=== PATIENT | female | born 1935 | race Caucasian/White ===

== ENCOUNTER 2021-11-23 08:31 | Outpatient (REF) | payer MEDICARE, SELFPAY ==
[2021-11-23 10:31] LABS: MANUAL DIFF FLAG NO
[2021-11-23 10:35] LABS: MANUAL DIFF FLAG NO
[2021-11-23 10:35] LABS: Basophils Percent Auto 0.5 % (0-2); Eosinophils Absolute Auto 0.3 X10*3/uL (0.0-0.4); Eosinophils Percent Auto 7.4 % (0-4); Hematocrit 36.1 % (37.0-47.0); Hemoglobin 10.5 g/dl (12.0-16.0); Imm Gran Abs Auto 0.01 X10*3/uL (0.00-0.03); Imm Gran Pct Auto 0.2 % (0.0-0.4); Lymphocytes Absolute Auto 1.9 X10*3/uL (1.2-4.9); Lymphocytes Percent Auto 45.9 % (20-40); Mean Corpuscular HGB Conc 29.1 g/dl (31.0-35.0); Mean Corpuscular Hemoglobin 21.9 pg (27.0-33.0); Mean Corpuscular Volume 75.4 fL (80.0-98.0); Mean Platelet Volume 10.8 fL (9.4-12.3); Monocytes Absolute Auto 0.3 X10*3/uL (0.1-1.2); Monocytes Percent Auto 7.9 % (2-11); Neutrophils Absolute Auto 1.5 x10*3/uL (2.0-8.3); Neutrophils Percent Auto 38.1 % (45-73); Platelet Count 281 X10*3/uL (160-400); Red Blood Count 4.79 X10*6/uL (4.20-5.50); Red Cell Distribution Width 18.1 % (11.0-16.0)
[2021-11-23 10:50] LABS: Alanine Aminotransferase 11 U/L (0-31); Alkaline Phosphatase 56 U/L (39-117); Anion Gap 11 (12-20); Aspartate Amino Transferase 17 U/L (5-31); Bilirubin Total 0.2 mg/dL (0.0-1.0); Blood Urea Nitrogen 20 mg/dL (9-16); Carbon Dioxide 31 mmol/L (22-29); Chloride 105 mmol/L (96-108); Cholesterol 185 mg/dL; Estimated Glomerular Filt Rate 55; Glucose Fasting 90 mg/dL (60-99); HDL Cholesterol 51 mg/dL; LDL Cholesterol Calculated 111 mg/dl; Potassium 3.9 mmol/L (3.3-5.1); Sodium 143 mmol/L (135-145); Total Protein 6.8 g/dL (6.5-8.0); Triglycerides 117 mg/dL
[2021-11-23 11:11] LABS: Thyroid Stimulating Hormone 0.45 uIU/mL (0.32-4.0)
== END 2021-11-23 08:32 | disposition home or self-care (01) ==
LOC: HO.10HDL 08:31
PROVIDERS: Visit Provider Internal Medicine
DX: Z00.00 Encounter for general adult medical examination without abnormal findings (principal); Z13.0 Encounter for screening for diseases of the blood and blood-forming organs and certain disorders involving the immune mechanism; E11.9 Type 2 diabetes mellitus without complications; E03.9 Hypothyroidism, unspecified
CPT/HCPCS: 36415; 80053; 80061; 84443; 85025

== ENCOUNTER 2022-06-27 12:42 | Outpatient (REF) | payer MEDICARE, SELFPAY | END 2022-06-27 12:43 | disposition home or self-care (01) | LOC: HO.SH 12:42 | PROVIDERS: Visit Provider Internal Medicine | DX: Z01.118 Encounter for examination of ears and hearing with other abnormal findings (principal); H90.3 Sensorineural hearing loss, bilateral | CPT/HCPCS: 92557; 92567 ==

== ENCOUNTER 2022-08-18 07:30 | Emergency (ER) | payer MEDICARE, SELFPAY ==
--- NOTE | ~2022-08-18 | XR_ITS ---
EXAMINATION: XR CHEST CLINICAL INFORMATION: Generalized weakness COMPARISON: None TECHNIQUE: Frontal view of the chest was obtained. FINDINGS: Several age indeterminate right-sided rib fractures are seen with subjacent opacity that could represent atelectasis or contusion. No dense focal consolidation or mass. No pleural effusion or pneumothorax. Normal pulmonary vascularity. Normal heart size. Degenerative changes of the spine and right greater than left shoulders. XR/XR chest 1V IMPRESSION: Age-indeterminate right-sided rib fractures with subjacent opacity that could represent atelectasis or contusion. Recommend correlation with physical exam. Consider short interval follow-up to confirm resolution of the pulmonary abnormalities.
--- NOTE | ~2022-08-18 | CT_ITS ---
EXAMINATION: CT CHEST WITHOUT CONTRAST CLINICAL INFORMATION: Abnormal chest x-ray COMPARISON: Chest x-ray 08/18/2022 TECHNIQUE: Multidetector volumetric CT imaging of the chest was done. Axial MIP volume rendering provided. Sagittal and coronal reformatted images were obtained. This CT examination was performed using dose optimization techniques as appropriate, variously including the following: *Automated exposure control *Adjustment of mA and/or kV according to patient size (this includes techniques or standardized protocols for targeted exams where dose is matched to indication/reason for exam; i.e. extremities or head) *Use of iterative reconstruction technique DLP: 154 mGy-cm FINDINGS: CHIEF BUSINESS OFFICER: Symmetrically expanded lungs. Right-sided rib fractures. LUNGS: The lungs are clear with no evidence of inflammation or nodules. MEDIASTINUM: The left thyroid is enlarged to 3.1 x 2.7 cm with diffuse heterogeneity. There is heterogeneity in the right lobe the thyroid but it is not enlarged. Several discrete nodules are seen the largest measuring 1.6 cm posteriorly in the left lobe the thyroid. No hilar or mediastinal lymphadenopathy. Normal heart size. Trace pericardial fluid. CORONARY ARTERY CALCIFICATION: There is three-vessel coronary artery calcification. PLEURA: There is no pleural effusion. No pleural mass or thickening. AXILLA: No lymphadenopathy. UPPER ABDOMEN: Small hiatal hernia. No adrenal mass. There are nonobstructing left renal calculi up to 4-5 mm. There is a water density simple cyst in the left kidney for which no imaging follow-up is recommended. OSSEOUS STRUCTURES: Multilevel degenerative changes of the thoracic spine. Multiple right-sided rib fractures are present. These are well-corticated with fracture callus consistent with remote prior fractures. CT/CT chest wo IV con IMPRESSION: The right-sided rib fractures have a chronic appearance. No acute pulmonary disease. Enlarged heterogeneous thyroid with multiple nodules the largest 1.6 cm. Recommend correlation with nonemergent thyroid ultrasound. Fleischner guidelines were followed.
[2022-08-18 07:35] VITALS: BP 122/79; BP 162/72; PULSE 82; PULSE 92; RESP 23; O2SAT 100; BMI 18.5
--- NOTE | 2022-08-18 07:38 | ECG_ITS ---
Test Reason : palpitations Blood Pressure : / mmHG Vent. Rate : 085 BPM Atrial Rate : 085 BPM P-R Int : 140 ms QRS Dur : 076 ms QT Int : 392 ms P-R-T Axes : 061 048 065 degrees QTc Int : 466 ms Normal sinus rhythm Normal ECG No previous ECGs available Referred By: Nathan Cornelius Electronically Signed By:Esvin Smith
--- NOTE | 2022-08-18 07:39 | ED_ITS ---
HPI - General Adult General Chief complaint: General Medical Stated complaint: DIZZINESS/LIGHTHEADEDNESS Time Seen by Provider: 08/18/22 07:32 Source: patient and EMS Mode of arrival: EMS Limitations: no limitations History of Present Illness HPI narrative: 87-year-old female came in by ambulance for evaluation of generalized weakness. Patient feels generalized weakness for the past 2 weeks getting worse over the past couple days patient also feeling nonspecified dizziness for the past 2-3 days, decreased p.o. intake and decreased appetite, Otherwise no CP, no SOB, no abdominal pain, no nausea, no vomiting, no diarrhea, no dysuria, no urinary frequency, no fever, no chills. No sick contact. Patient use opiates for the past 30 years for different pain issues. Related Data Previous Rx's Medication Instructions Recorded verapamil 180 mg tablet,extended 180 mg PO DAILY #90 tabs 03/17/21 release sertraline 100 mg tablet 150 mg PO DAILY #135 tabs 03/27/22 trazodone 50 mg tablet 50 mg PO BEDTIME #90 tabs 03/27/22 quinapril 40 mg tablet 40 mg PO DAILY #90 tabs 05/18/22 simvastatin 40 mg tablet 40 mg PO BEDTIME #90 tabs 05/18/22 lorazepam 1 mg tablet 1 mg PO BID #180 tabs 06/28/22 hydrochlorothiazide 25 mg tablet 25 mg PO DAILY #90 tabs 07/19/22 hydrocodone 7.5 mg-acetaminophen 1 tab PO BID PRN pain 28 days #56 08/04/22 325 mg tablet tabs lorazepam 1 mg tablet 1 mg PO BID PRN anxiety #7 tabs 08/18/22 Allergies Allergy/AdvReac Type Severity Reaction Status Date / Time No Known Allergies Allergy Verified 08/18/22 07:48 Review of Systems Review of Systems: All other systems are reviewed and are negative Constitutional: Reports as per HPI and Reports no additional constitutional complaints Eyes: Reports as per HPI and Reports no additional eye complaints Reports system reviewed and no additional complaints, except as documented Cardiovascular: Reports as per HPI and Reports no additional cardiovascular complaints Respiratory: Reports as per HPI and Reports no additional respiratory complaints Gastrointestinal: Reports as per HPI and Reports no additional gastrointestinal complaints Genitourinary: Reports no additional female genitourinary complaints Musculoskeletal: Reports no additional musculoskeletal complaints Skin/Breast: Reports system reviewed and no additional complaints, except as docu Psychiatric: Reports no additional psychiatric complaints Endocrine: Reports no additional endocrine complaints Hematologic/Lymphatic: Reports no additional hematologic/lymphatic complaints Allergic/Immunologic: Reports no additional allergic/immunologic complaints Reports system reviewed and no additional complaints, except as documented and Reports Abnormal speech present [facility] Past Medical History Medical History Annual physical exam Bilateral impacted cerumen Hyperlipidemia Hypertension Surgical History History of appendectomy History of breast surgery Family History Family History Father No problems noted. Mother No problems noted. Son Mental health disorder Social History Social History Housing: House Alcohol intake: never Patient Tobacco Use Status: Never used Tobacco e-Cigarette/Vaping Use: Never Used Second Hand Smoke Exposure: No Advance Directives: No Advance Directives Information Provided: No service: No Current occupational status: retired Current occupational exposures/hazards: No Cognitive needs: Yes (cane ) Hearing needs: No Vision needs: Yes Physical Exam ED Vital Signs: Vital Signs - 24 hr 08/18/22 07:35 08/18/22 09:12 08/18/22 09:12 Pulse Rate 92 114 H 101 H Respiratory Rate 23 H Blood Pressure 122/79 98/69 110/77 Pulse Oximetry 100 Oxygen Delivery Method Room Air 08/18/22 09:12 08/18/22 11:22 Pulse Rate 88 88 Respiratory Rate Blood Pressure 143/74 H 143/74 H Pulse Oximetry Oxygen Delivery Method BMI result Body Mass Index 18.5 Vital signs have been reviewed as appeared to be correct. Blood pressure normal. Heart rate normal. Respiration rate normal. Temperature normal. Oxygen saturation normal. Appearance: Alert. Oriented X3. No acute distress. Head: Normal external exam. Normocephalic. Atraumatic. No Saul signs noted. No raccoon eyes noted Eyes: PERRLA. EOMI. Conjunctiva and sclera normal. Eyelids normal. ENT: TM's Normal. Pharynx normal. Uvula midline. Moist mucous membranes. No trismus noted. No drooling noted. No muffled voice noted. Neck: Normal inspection. Neck supple. FROM. No adenopathy. Thyroid Normal. No meningeal signs. No neck mass noted. CVS: Normal heart rate and rhythm. Heart sound normal. No murmurs noted. Pulses normal throughout. Respiratory: No respiratory distress. Painless inspiration. Breath sounds sonia l. No wheezes/rales/rhonchi noted. Chest nontender. No accessory muscle usage noted or decreased air movement noted. Abdomen: Soft and nontender. Bowel sounds normal in all 4 quadrants. No distention noted. No organomegaly noted. No visible injury noted. Back: No CVA tenderness. Full range of motion noted. Skin: Skin warm and dry. Normal skin color. Normal skin turgor. No rashes/lesions/lacerations noted. Extremities: No lower extremity edema. Extremities exhibit normal range of motion. Extremities nontender. Neuro: Oriented X 3. Cranial nerve exam: II-XII are grossly intact No motor deficit. No sensory deficit. Reflexes normal. Course Course Course Narrative: 87-year-old female came in for evaluation of generalized weakness with failure to thrive at home patient is opiate dependent medical workup today was unremarkable, patient will be going to [facility] rehab. Medications Administered Discontinued Medications Generic Name Dose Route Start Last Admin Trade Name Freq PRN Reason Stop Dose Admin Sodium Chloride 1,000 mls @ 999 mls/hr 08/18/22 09:15 08/18/22 10:46 Ns IV 08/18/22 10:15 Infused .Q1H1M ONE Infusion Medical Decision Making Differential Diagnosis Differential Diagnoses: The differential diagnosis associated with the presentation includes (Viral infection, UTI, dehydration, electrolyte disturbance, opiate dependence) Lab Data MDM Lab Attestation statement: I reviewed the patient's lab results. 08/18/22 08:00 08/18/22 08:00 Labs: Lab Results 08/18/22 08/18/22 08/18/22 Range/Units 08:00 08:00 08:00 WBC 6.2 (4.8-10.8) X10*3/uL RBC 5.23 (4.20-5.50) X10*6/uL Hgb 13.5 D (12.0-16.0) g/dl Hct 42.7 (37.0-47.0) % MCV 81.6 (80.0-98.0) fL MCH 25.8 L (27.0-33.0) pg MCHC 31.6 (31.0-35.0) g/dl RDW 15.2 (11.0-16.0) % Plt Count 269 (160-400) X10*3/uL MPV 10.4 (9.4-12.3) fL Immature Gran % (Auto) 0.2 (0.0-0.4) % Neut % (Auto) 58.8 (45-73) % Lymph % (Auto) 34.1 (20-40) % [place] % (Auto) 5.3 (2-11) % Eos % (Auto) 1.0 (0-4) % Baso % (Auto) 0.6 (0-2) % Lymph # (Auto) 2.1 (1.2-4.9) X10*3/uL [place] # (Auto) 0.3 (0.1-1.2) X10*3/uL Eos # (Auto) 0.1 (0.0-0.4) X10*3/uL Baso # (Auto) 0.0 (0.0-0.2) X10*3/uL Abs Immat Gran (auto) 0.01 (0.00-0.03) X10*3/uL Absolute Neuts (auto) 3.7 (2.0-8.3) x10*3/uL Absolute Nucleated RBC 0.000 (0.0-0.012) X10*3/uL Nucleated RBC % (auto) 0.0 (0.0-0.2) /100WBC Sodium 143 (135-145) mmol/L Potassium 3.9 (3.3-5.1) mmol/L Chloride 108 (96-108) mmol/L Carbon Dioxide 24 (22-29) mmol/L Anion Gap 15 (12-20) BUN 24 H (9-16) mg/dL Creatinine 0.94 (0.5-1.4) mg/dL Estim Creat Clear Calc 31.5 Estimated GFR 56 Random Glucose 99 (60-115) mg/dL Lactic Acid 3.4 H* (0.5-2.0) mmol/L Lactic Acid F/U @ 2Hr (0.5-2.0) mmol/L Calcium 10.2 (8.4-10.2) mg/dL Total Bilirubin 0.5 (0.0-1.0) mg/dL Direct Bilirubin 0.2 (0.0-0.5) mg/dL AST 20 (5-31) U/L ALT 14 (0-31) U/L Alkaline Phosphatase 50 (39-117) U/L Troponin I High Sens (<3.5-17.0) ng/L B-Natriuretic Peptide (<100) pg/mL Total Protein 6.9 (6.5-8.0) g/dL Albumin 4.2 (3.5-5.0) g/dL Lipase 38 (8-78) U/L Urine Color Urine Appearance Urine pH (5.0-9.0) Ur Specific [place] (1.005-1.025) Urine Protein (Neg-Trace) mg/dL Urine Glucose (UA) (Negative) mg/dL Urine Ketones (Negative) mg/dL Urine Blood (Negative) Urine Nitrite (Negative) Ur Leukocyte Esterase (Negative) Urine RBC (0-2) /HPF Urine WBC (0-5) /HPF Ur Squamous Epith Cells (0-2) /HPF Urine Bacteria (None Seen) Hyaline Casts (0-2) /LPF Influenza Type A (PCR) (Negative) Influenza Type B (PCR) (Negative) RSV RNA Qual (PCR) (Negative) SARS-CoV-2 RNA (RT-PCR) (Negative) 08/18/22 08/18/22 08/18/22 Range/Units 08:00 08:00 08:00 WBC (4.8-10.8) X10*3/uL RBC (4.20-5.50) X10*6/uL Hgb (12.0-16.0) g/dl Hct (37.0-47.0) % MCV (80.0-98.0) fL MCH (27.0-33.0) pg MCHC (31.0-35.0) g/dl RDW (11.0-16.0) % Plt Count (160-400) X10*3/uL MPV (9.4-12.3) fL Immature Gran % (Auto) (0.0-0.4) % Neut % (Auto) (45-73) % Lymph % (Auto) (20-40) % [place] % (Auto) (2-11) % Eos % (Auto) (0-4) % Baso % (Auto) (0-2) % Lymph # (Auto) (1.2-4.9) X10*3/uL [place] # (Auto) (0.1-1.2) X10*3/uL Eos # (Auto) (0.0-0.4) X10*3/uL Baso # (Auto) (0.0-0.2) X10*3/uL Abs Immat Gran (auto) (0.00-0.03) X10*3/uL Absolute Neuts (auto) (2.0-8.3) x10*3/uL Absolute Nucleated RBC (0.0-0.012) X10*3/uL Nucleated RBC % (auto) (0.0-0.2) /100WBC Sodium (135-145) mmol/L Potassium (3.3-5.1) mmol/L Chloride (96-108) mmol/L Carbon Dioxide (22-29) mmol/L Anion Gap (12-20) BUN (9-16) mg/dL Creatinine (0.5-1.4) mg/dL Estim Creat Clear Calc Estimated GFR Random Glucose (60-115) mg/dL Lactic Acid (0.5-2.0) mmol/L Lactic Acid F/U @ 2Hr (0.5-2.0) mmol/L Calcium (8.4-10.2) mg/dL Total Bilirubin (0.0-1.0) mg/dL Direct Bilirubin (0.0-0.5) mg/dL AST (5-31) U/L ALT (0-31) U/L Alkaline Phosphatase (39-117) U/L Troponin I High Sens 5.1 (<3.5-17.0) ng/L B-Natriuretic Peptide 14 (<100) pg/mL Total Protein (6.5-8.0) g/dL Albumin (3.5-5.0) g/dL Lipase (8-78) U/L Urine Color Urine Appearance Urine pH (5.0-9.0) Ur Specific [place] (1.005-1.025) Urine Protein (Neg-Trace) mg/dL Urine Glucose (UA) (Negative) mg/dL Urine Ketones (Negative) mg/dL Urine Blood (Negative) Urine Nitrite (Negative) Ur Leukocyte Esterase (Negative) Urine RBC (0-2) /HPF Urine WBC (0-5) /HPF Ur Squamous Epith Cells (0-2) /HPF Urine Bacteria (None Seen) Hyaline Casts (0-2) /LPF Influenza Type A (PCR) NEGATIVE (Negative) Influenza Type B (PCR) NEGATIVE (Negative) RSV RNA Qual (PCR) NEGATIVE (Negative) SARS-CoV-2 RNA (RT-PCR) NEGATIVE (Negative) 08/18/22 08/18/22 Range/Units 09:17 11:26 WBC (4.8-10.8) X10*3/uL RBC (4.20-5.50) X10*6/uL Hgb (12.0-16.0) g/dl Hct (37.0-47.0) % MCV (80.0-98.0) fL MCH (27.0-33.0) pg MCHC (31.0-35.0) g/dl RDW (11.0-16.0) % Plt Count (160-400) X10*3/uL MPV (9.4-12.3) fL Immature Gran % (Auto) (0.0-0.4) % Neut % (Auto) (45-73) % Lymph % (Auto) (20-40) % [place] % (Auto) (2-11) % Eos % (Auto) (0-4) % Baso % (Auto) (0-2) % Lymph # (Auto) (1.2-4.9) X10*3/uL [place] # (Auto) (0.1-1.2) X10*3/uL Eos # (Auto) (0.0-0.4) X10*3/uL Baso # (Auto) (0.0-0.2) X10*3/uL Abs Immat Gran (auto) (0.00-0.03) X10*3/uL Absolute Neuts (auto) (2.0-8.3) x10*3/uL Absolute Nucleated RBC (0.0-0.012) X10*3/uL Nucleated RBC % (auto) (0.0-0.2) /100WBC Sodium (135-145) mmol/L Potassium (3.3-5.1) mmol/L Chloride (96-108) mmol/L Carbon Dioxide (22-29) mmol/L Anion Gap (12-20) BUN (9-16) mg/dL Creatinine (0.5-1.4) mg/dL Estim Creat Clear Calc Estimated GFR Random Glucose (60-115) mg/dL Lactic Acid (0.5-2.0) mmol/L Lactic Acid F/U @ 2Hr 1.1 (0.5-2.0) mmol/L Calcium (8.4-10.2) mg/dL Total Bilirubin (0.0-1.0) mg/dL Direct Bilirubin (0.0-0.5) mg/dL AST (5-31) U/L ALT (0-31) U/L Alkaline Phosphatase (39-117) U/L Troponin I High Sens (<3.5-17.0) ng/L B-Natriuretic Peptide (<100) pg/mL Total Protein (6.5-8.0) g/dL Albumin (3.5-5.0) g/dL Lipase (8-78) U/L Urine Color Yellow Urine Appearance Clear Urine pH >= 9.0 (5.0-9.0) Ur Specific [place] 1.020 (1.005-1.025) Urine Protein 30 (1+) H (Neg-Trace) mg/dL Urine Glucose (UA) Negative (Negative) mg/dL Urine Ketones Negative (Negative) mg/dL Urine Blood Negative (Negative) Urine Nitrite Negative (Negative) Ur Leukocyte Esterase Trace H (Negative) Urine RBC 0-2 (0-2) /HPF Urine WBC 0-5 (0-5) /HPF Ur Squamous Epith Cells 0-2 (0-2) /HPF Urine Bacteria None Seen (None Seen) Hyaline Casts 0-2 (0-2) /LPF Influenza Type A (PCR) (Negative) Influenza Type B (PCR) (Negative) RSV RNA Qual (PCR) (Negative) SARS-CoV-2 RNA (RT-PCR) (Negative) Independent Interpretation I performed an independent interpretation of an: EKG (Normal sinus rhythm at 85 beats per minute, normal intervals, normal axis deviation, no ST-T changes.), Plain X-Ray (Chest: No acute intrathoracic pathology) and CT Scan (Chest: No acute intrathoracic pathology.) Radiology Impression Discussion of test interpretation with radiology: I have reviewed the radiologist's reading. Discharge Plan Discharge Clinical Impression: Opiate dependence, Chronic pain, Adult failure to thrive Patient Disposition: Xfer [facility] Prescriptions: New lorazepam 1 mg tablet 1 mg PO BID PRN (Reason: anxiety) Qty: 7 0RF No Action verapamil 180 mg tablet extended release 180 mg PO DAILY Qty: 90 8RF sertraline 100 mg tablet 150 mg PO DAILY Qty: 135 8RF trazodone 50 mg tablet 50 mg PO BEDTIME Qty: 90 8RF simvastatin 40 mg tablet 40 mg PO BEDTIME Qty: 90 8RF quinapril 40 mg tablet 40 mg PO DAILY Qty: 90 3RF lorazepam 1 mg tablet 1 mg PO BID Qty: 180 5RF hydrochlorothiazide 25 mg tablet 25 mg PO DAILY Qty: 90 8RF hydrocodone-acetaminophen 7.5-325 mg tablet 1 tab PO BID PRN (Reason: pain) 28 Days Qty: 56 0RF Referrals: [facility] [Outside]
[2022-08-18 08:07] LABS: MANUAL DIFF FLAG NO
[2022-08-18 08:11] LABS: Basophils Percent Auto 0.6 % (0-2); Eosinophils Absolute Auto 0.1 X10*3/uL (0.0-0.4); Hematocrit 42.7 % (37.0-47.0); Hemoglobin 13.5 g/dl (12.0-16.0); Imm Gran Abs Auto 0.01 X10*3/uL (0.00-0.03); Imm Gran Pct Auto 0.2 % (0.0-0.4); Lymphocytes Absolute Auto 2.1 X10*3/uL (1.2-4.9); Lymphocytes Percent Auto 34.1 % (20-40); Mean Corpuscular HGB Conc 31.6 g/dl (31.0-35.0); Mean Corpuscular Hemoglobin 25.8 pg (27.0-33.0); Mean Corpuscular Volume 81.6 fL (80.0-98.0); Mean Platelet Volume 10.4 fL (9.4-12.3); Monocytes Absolute Auto 0.3 X10*3/uL (0.1-1.2); Monocytes Percent Auto 5.3 % (2-11); Neutrophils Absolute Auto 3.7 x10*3/uL (2.0-8.3); Neutrophils Percent Auto 58.8 % (45-73); Platelet Count 269 X10*3/uL (160-400); Red Blood Count 5.23 X10*6/uL (4.20-5.50); Red Cell Distribution Width 15.2 % (11.0-16.0); White Blood Count 6.2 X10*3/uL (4.8-10.8)
[2022-08-18 08:27] LABS: Lactic Acid 3.4 mmol/L (0.5-2.0)
[2022-08-18 08:33] LABS: Alanine Aminotransferase 14 U/L (0-31); Albumin Level 4.2 g/dL (3.5-5.0); Alkaline Phosphatase 50 U/L (39-117); Anion Gap 15 (12-20); Aspartate Amino Transferase 20 U/L (5-31); Bilirubin Direct 0.2 mg/dL (0.0-0.5); Bilirubin Total 0.5 mg/dL (0.0-1.0); Blood Urea Nitrogen 24 mg/dL (9-16); Calcium 10.2 mg/dL (8.4-10.2); Carbon Dioxide 24 mmol/L (22-29); Chloride 108 mmol/L (96-108); Creatinine Clr Calc Pharmacy 31.5; Estimated Glomerular Filt Rate 56; Glucose Random 99 mg/dL (60-115); Lipase 38 U/L (8-78); Potassium 3.9 mmol/L (3.3-5.1); Sodium 143 mmol/L (135-145); Total Protein 6.9 g/dL (6.5-8.0)
[2022-08-18 08:34] LABS: B Type Natriuretic Peptide 14 pg/mL (<100)
[2022-08-18 08:38] LABS: Troponin-I High Sensitivity 5.1 ng/L (<3.5-17.0)
[2022-08-18 08:47] LABS: Influenza A PCR NEGATIVE (Negative); Influenza B PCR NEGATIVE (Negative); Resp Syncy Virus RNA Qual PCR NEGATIVE (Negative); SARS COV2 PCR INHOUSE NEGATIVE (Negative)
[2022-08-18 09:12] VITALS: BP 110/77; BP 143/74; BP 98/69; PULSE 101; PULSE 114; PULSE 88
[2022-08-18] MEDS: 0.9 % Sodium Chloride 1,000 ML 999 ML IV (09:18)
[2022-08-18 09:30] LABS: Appearance Urine Clear; Color Urine Yellow; Glucose Urine UA Negative (Negative); Leukocyte Esterase Urine Trace (Negative); Nitrite Urine Negative (Negative); PH >= 9.0 (5.0-9.0); UMIC TRIGGER UACC YES; Urine Blood Negative (Negative); Urine Ketones Negative (Negative); Urine Protein 30 (1+) mg/dL (Neg-Trace)
[2022-08-18 10:06] LABS: Reflex Lactate? Lactic Acid Added
--- NOTE | 2022-08-18 11:20 | MHC.CM.ED ---
Received case management consult from Dr Cornelius. Patient came to the ER due to dizziness. Work up essentially negative. Physical therapy eval completed. Short term rehab is being recommended. Met with patient and daughter, Ronel. Patient lives with her son, Jd, ambulates with a cane and had no services prior to coming to the hospital. Jd has back and medical issues and is not able to provide physical care for patient. PCP verified. Ronel has a copy of patient's HCP and will obtain a copy for CM. Patient has never been to short term rehab. List of facilities contracted with [facility] provided to patient and Ronel. Facility choices will be provided to CM. Continue to monitor for d/c needs.
[2022-08-18 11:22] VITALS: BP 143/74; PULSE 88
[2022-08-18 11:51] LABS: Bacteria Urine None Seen (None Seen); Hyaline Casts Urine 0-2 /LPF (0-2); RBC Urine 0-2 /HPF (0-2); Squamous Epithelial Cell Urine 0-2 /HPF (0-2); WBC Urine 0-5 /HPF (0-5)
[2022-08-18 11:52] LABS: ~Lactic Acid-LAB USE ONLY 1.1 mmol/L (0.5-2.0)
--- NOTE | 2022-08-18 13:04 | MHC.CM.ED ---
Addendum entered by Radha Russell 08/18/22 14:16: [facility] unable to offer a bed. Referral broadcasted to all facilities contracted with patient's insurance within 20 miles. [facility], [facility], [place] and [facility] are able to offer a bed. Patient and Ronel accept bed at [facility]. Continue to monitor for d/c needs. Original Note: Facility choices: 1) [facility]) [facility] 3) [facility]. Referral made via [facility]. Copy of HCP obtained from Ronel. Continue to monitor for d/c needs.
--- NOTE | 2022-08-18 14:40 | MHC.CM.ED ---
Patient can leave for [facility] via BLS at 330pm. Tien CHAPMANS booked. Med nec with chart. Patient, daughter Angelina Rodney RN and Dr Cornelius aware. Continue to monitor for d/c needs.
[2022-08-18 14:49] VITALS: BP 138/100; PULSE 104; RESP 16; TEMP 36.4; O2SAT 94
== END 2022-08-18 17:10 | disposition skilled nursing facility (03) ==
PROVIDERS: Emergency Provider Emergency Medicine; PCP Internal Medicine
DX: F11.20 Opioid dependence, uncomplicated (principal); R00.2 Palpitations; R42 Dizziness and giddiness; G89.29 Other chronic pain; R62.7 Adult failure to thrive; R06.02 Shortness of breath; R26.2 Difficulty in walking, not elsewhere classified; Z20.822 Contact with and (suspected) exposure to COVID-19; Z20.828 Contact with and (suspected) exposure to other viral communicable diseases; Z79.899 Other long term (current) drug therapy
CPT/HCPCS: 0241U; 36415; 71045; 71250; 80048; 80076; 81001; 83605; 83690; 83880; 84484; 85025; 87040; 93005; 96360; 97162; 99285

== ENCOUNTER 2022-09-01 14:50 | Emergency (ER) | payer MEDICARE, SELFPAY ==
--- NOTE | ~2022-09-01 | XR_ITS ---
EXAMINATION: XR CHEST CLINICAL INFORMATION: Shortness of breath COMPARISON: 08/18/2022 TECHNIQUE: 2 views of the chest were obtained. FINDINGS: Hyperexpanded lungs. No consolidation, edema, or effusion. No pneumothorax. The cardiomediastinal silhouette is within normal limits. Mild degenerative changes in the spine. Chronic right lateral healed rib fractures. XR/XR chest 2V IMPRESSION: Hyperexpanded lungs with no acute pulmonary finding.
[2022-09-01 14:57] VITALS: BP 144/85; PULSE 93; RESP 18; TEMP 36.3; O2SAT 100; BMI 18.6
--- NOTE | 2022-09-01 14:59 | ED_ITS ---
HPI - General Adult General Chief complaint: General Medical <PATRICK Rock - Last Filed: 09/01/22 15:04> Stated complaint: Sent by Dr. Florin Mahmood <PATRICK Rock - Last Filed: 09/01/22 15:04> Time Seen by Provider: 09/01/22 17:39 <PATRICK Rock - Last Filed: 09/01/22 15:04> Source: patient <Jay Payton MD - Last Filed: 09/01/22 23:16> Mode of arrival: ambulatory <Jay Payton MD - Last Filed: 09/01/22 23:16> Limitations: no limitations <Jay Payton MD - Last Filed: 09/01/22 23:16> History of Present Illness HPI narrative: Presented to the Ed c/o Depression and SI.Pt and family states that she has bed at the psych Unit. Denies any fever chills vomiting diarrhea <Jay Payton MD - Last Filed: 09/01/22 23:16> Onset (ago): day(s) (1) <Jay Payton MD - Last Filed: 09/01/22 23:16> Radiation: non-radiation <Jay Payton MD - Last Filed: 09/01/22 23:16> Severity: moderate <Jay Payton MD - Last Filed: 09/01/22 23:16> Quality: burning <Jay Payton MD - Last Filed: 09/01/22 23:16> Pain Consistency: constant <Jay Payton MD - Last Filed: 09/01/22 23:16> Related Data Home medications: Previous Rx's Medication Instructions Recorded verapamil 180 mg tablet,extended 180 mg PO DAILY #90 tabs 03/17/21 release sertraline 100 mg tablet 150 mg PO DAILY #135 tabs 03/27/22 trazodone 50 mg tablet 50 mg PO BEDTIME #90 tabs 03/27/22 quinapril 40 mg tablet 40 mg PO DAILY #90 tabs 05/18/22 simvastatin 40 mg tablet 40 mg PO BEDTIME #90 tabs 05/18/22 hydrochlorothiazide 25 mg tablet 25 mg PO DAILY #90 tabs 12/14/22 hydrocodone 7.5 mg-acetaminophen 1 tab PO BID PRN pain 28 days #56 08/04/22 325 mg tablet tabs lorazepam 1 mg tablet 1 mg PO BID PRN anxiety #7 tabs 08/18/22 <PATRICK Rock - Last Filed: 09/01/22 15:04> Allergies/adverse reactions: Allergies Allergy/AdvReac Type Severity Reaction Status Date / Time No Known Allergies Allergy Verified 09/01/22 14:19 <PATRICK Rock - Last Filed: 09/01/22 15:04> Review of Systems Constitutional: Constitutional: Reports no additional constitutional complaints <Jay Payton MD - Last Filed: 09/01/22 23:16> Cardiovascular: Cardiovascular: Reports no additional cardiovascular complaints <Jay Payton MD - Last Filed: 09/01/22 23:16> Neurologic: Reports system reviewed and no additional complaints, except as documented and Reports Abnormal speech present <Jay Payton MD - Last Filed: 09/01/22 23:16> Psychiatric: Psychiatric: Reports anxiety and Reports depression <Jay Payton MD - Last Filed: 09/01/22 23:16> PMFSH Past Medical History Medical History: Medical History Annual physical exam Bilateral impacted cerumen Hyperlipidemia Hypertension <PATRICK Rock - Last Filed: 09/01/22 15:04> Surgical History: Surgical History History of appendectomy History of breast surgery <PATRICK Rock - Last Filed: 09/01/22 15:04> Family History Family History: Family History Father No problems noted. Mother No problems noted. Son Mental health disorder <PATRICK Rock - Last Filed: 09/01/22 15:04> Social History Social History: Social History Housing: House Alcohol intake: unknown Patient Tobacco Use Status: Never used Tobacco Smoked in Last 30 Days: No e-Cigarette/Vaping Use: Never Used Second Hand Smoke Exposure: No Use of substances other than those prescribed or required for medical reasons: Unknown Advance Directives: No Advance Directives Information Provided: Yes Healthcare Proxy: Yes (dtr Ronel Marti) Guardian: No service: No Current occupational status: retired Current occupational exposures/hazards: No Cognitive needs: Yes (cane ) Hearing needs: No Vision needs: Yes <PATRICK Rock - Last Filed: 09/01/22 15:04> Physical Exam ED Vital Signs: Vital Signs - 24 hr 09/01/22 14:57 09/01/22 18:00 09/01/22 19:41 Temperature 97.3 F 98.4 F Pulse Rate 93 94 Respiratory Rate 18 18 16 Blood Pressure 144/85 H 159/93 H Pulse Oximetry 100 95 Oxygen Delivery Method Room Air Room Air 09/01/22 21:46 09/01/22 22:15 Temperature 97.4 F 98.6 F Pulse Rate 72 105 H Respiratory Rate 16 20 Blood Pressure 146/70 H 136/86 Pulse Oximetry 97 97 Oxygen Delivery Method Room Air Room Air BMI result Body Mass Index 18.6 <PATRICK Rock - Last Filed: 09/01/22 15:04> Vital Signs - 24 hr 09/01/22 14:57 09/01/22 18:00 09/01/22 19:41 Temperature 97.3 F 98.4 F Pulse Rate 93 94 Respiratory Rate 18 18 16 Blood Pressure 144/85 H 159/93 H Pulse Oximetry 100 95 Oxygen Delivery Method Room Air Room Air 09/01/22 21:46 09/01/22 22:15 Temperature 97.4 F 98.6 F Pulse Rate 72 105 H Respiratory Rate 16 20 Blood Pressure 146/70 H 136/86 Pulse Oximetry 97 97 Oxygen Delivery Method Room Air Room Air BMI result Body Mass Index 18.6 <Jay Payton MD - Last Filed: 09/01/22 23:16> Const General: cooperative <Jay Payton MD - Last Filed: 09/01/22 23:16> Nutritional Appearance: well nourished <Jay Payton MD - Last Filed: 09/01/22 23:16> Orientation/consciousness: patient oriented x3 <Jay Payton MD - Last Filed: 09/01/22 23:16> Limitations: no limitations <Jay Payton MD - Last Filed: 09/01/22 23:16> HENMT Head: Yes normal to inspection <Jay Payton MD - Last Filed: 09/01/22 23:16> Ears: hearing grossly normal bilaterally <Jay Payton MD - Last Filed: 09/01/22 23:16> General nose exam: Normal external nose present <Jay Payton MD - Last Filed: 09/01/22 23:16> Face and sinus: Yes normal facial exam <Jay Payton MD - Last Filed: 09/01/22 23:16> Mouth: Normal oral and palatal mucosa present <Jay Payton MD - Last Filed: 09/01/22 23:16> Throat: Yes posterior oropharynx normal <Jay Payton MD - Last Filed: 09/01/22 23:16> Neck Neck: Yes normal visual inspection and Yes full ROM <Jay Payton MD - Last Filed: 09/01/22 23:16> Thyroid: Thyroid normal <Jay Payton MD - Last Filed: 09/01/22 23:16> Carotids: normal carotid upstroke <Jay Payton MD - Last Filed: 09/01/22 23:16> Lymphatic: no lymphadenopathy noted <Jay Payton MD - Last Filed: 09/01/22 23:16> Chest Chest palpation & inspection: normal inspection of the chest <Jay Payton MD - Last Filed: 09/01/22 23:16> Resp Effort & Inspection: normal respiratory effort <Jay Payton MD - Last Filed: 09/01/22 23:16> Auscultation: clear to auscultation bilaterally <Jay Payton MD - Last Filed: 09/01/22 23:16> Cardio Jugular venous distension: no JVD <Jay Payton MD - Last Filed: 09/01/22 23:16> Palpation: normal PMI <Jay Payton MD - Last Filed: 09/01/22 23:16> Rate: regular rate <Jay Payton MD - Last Filed: 09/01/22 23:16> Rhythm: regular rhythm <Jay Payton MD - Last Filed: 09/01/22 23:16> GI Inspection: Yes normal to inspection <Jay Payton MD - Last Filed: 09/01/22 23:16> Palpation (GI): Soft to palpation and not firm <Jay Payton MD - Last Filed: 09/01/22 23:16> Percussion: Yes normal to percussion <Jay Payton MD - Last Filed: 09/01/22 23:16> Auscultation: normal bowel sounds <Jay Payton MD - Last Filed: 09/01/22 23:16> General: Yes no CVA tenderness <Jay Payton MD - Last Filed: 09/01/22 23:16> Back/Spine/Pelvis Back: no CVA tenderness <Jay Payton MD - Last Filed: 09/01/22 23:16> Skin General skin exam: no rashes or lesions noted and elasticity normal <Jay Payton MD - Last Filed: 09/01/22 23:16> Lesions: no lesions <Jay Payton MD - Last Filed: 09/01/22 23:16> Rashes: no rashes <Jay Payton MD - Last Filed: 09/01/22 23:16> Trauma: no lacerations or abrasions <Jay Payton MD - Last Filed: 09/01/22 23:16> Wounds: no wounds <Jay Payton MD - Last Filed: 09/01/22 23:16> Hair: normal <Jay Payton MD - Last Filed: 09/01/22 23:16> Neuro General: patient oriented x3 <Jay Payton MD - Last Filed: 09/01/22 23:16> Cranial nerves: Yes CN's II-XII intact bilaterally <Jay Payton MD - Last Filed: 09/01/22 23:16> Cognition (Neuro): normal cognition <Jay Payton MD - Last Filed: 09/01/22 23:16> Speech: Abnormal speech present <Jay Payton MD - Last Filed: 09/01/22 23:16> Extrem General: Yes normal to inspection, Yes full ROM and Yes capillary refill normal <Jay Payton MD - Last Filed: 09/01/22 23:16> Right upper extremity: normal to inspection <Jay Payton MD - Last Filed: 09/01/22 23:16> Left upper extremity: normal to inspection <Jay Payton MD - Last Filed: 09/01/22 23:16> Course Course Course Narrative: RME performed by Dinorah Iqbal PA-C. Patient is an 87 year old female presenting to the emergency department for the cessation of lorazepam and hydrocodone. Patient's daughter states that the patient's doctor called the department and alerted that the patient would be sent here to be monitored during the withdrawal process. Patient is also having increased shortness of breath? Labs and CXR ordered. <PATRICK Rock - Last Filed: 09/01/22 15:04> Reevaluation(s) Reevaluation #1: waiting for crisis eval I will signed out pt to Dr Gruber <Jay Payton MD - Last Filed: 09/01/22 23:16> Medications Administered Discontinued Medications Generic Name Dose Route Start Last Admin Trade Name Freq PRN Reason Stop Dose Admin Lorazepam 1 mg 09/01/22 21:50 09/01/22 22:14 Lorazepam 1 Mg Tablet PO 09/01/22 21:51 1 mg ONCE ONE Administration <PATRICK Rock - Last Filed: 09/01/22 15:04> Medications Administered Discontinued Medications Generic Name Dose Route Start Last Admin Trade Name Freq PRN Reason Stop Dose Admin Lorazepam 1 mg 09/01/22 21:50 09/01/22 22:14 Lorazepam 1 Mg Tablet PO 09/01/22 21:51 1 mg ONCE ONE Administration <Jay Payton MD - Last Filed: 09/01/22 23:16> Medical Decision Making Medical Decision Making MDM Narrative: presented with depression/Si/benzo abuse will get crisis team <Jay Payton MD - Last Filed: 09/01/22 23:16> Differential Diagnosis Differential Diagnoses: The differential diagnosis associated with the presentation includes <Jay Payton MD - Last Filed: 09/01/22 23:16> anxiety/major depression substance abuse <Jay Payton MD - Last Filed: 09/01/22 23:16> Admission/Observation Consideration of admission/observation: Escalation of care including admission/observation considered <Jay Payton MD - Last Filed: 09/01/22 23:16> Lab Data MDM Lab Attestation statement: I reviewed the patient's lab results. <Jay Payton MD - Last Filed: 09/01/22 23:16> Result Diagrams: 09/01/22 15:35 09/01/22 15:35 <PATRICK Rock - Last Filed: 09/01/22 15:04> Labs: Lab Results 09/01/22 09/01/22 09/01/22 Range/Units 15:35 15:35 15:35 WBC 4.7 L (4.8-10.8) X10*3/uL RBC 5.04 (4.20-5.50) X10*6/uL Hgb 13.2 (12.0-16.0) g/dl Hct 40.5 (37.0-47.0) % MCV 80.4 (80.0-98.0) fL MCH 26.2 L (27.0-33.0) pg MCHC 32.6 (31.0-35.0) g/dl RDW 15.6 (11.0-16.0) % Plt Count 249 (160-400) X10*3/uL MPV 9.8 (9.4-12.3) fL Immature Gran % (Auto) 0.2 (0.0-0.4) % Neut % (Auto) 56.6 (45-73) % Lymph % (Auto) 34.1 (20-40) % [place] % (Auto) 8.5 (2-11) % Eos % (Auto) 0.2 (0-4) % Baso % (Auto) 0.4 (0-2) % Lymph # (Auto) 1.6 (1.2-4.9) X10*3/uL [place] # (Auto) 0.4 (0.1-1.2) X10*3/uL Eos # (Auto) 0.0 (0.0-0.4) X10*3/uL Baso # (Auto) 0.0 (0.0-0.2) X10*3/uL Abs Immat Gran (auto) 0.01 (0.00-0.03) X10*3/uL Absolute Neuts (auto) 2.7 (2.0-8.3) x10*3/uL Absolute Nucleated RBC 0.000 (0.0-0.012) X10*3/uL Nucleated RBC % (auto) 0.0 (0.0-0.2) /100WBC Sodium 139 (135-145) mmol/L Potassium 4.1 (3.3-5.1) mmol/L Chloride 104 (96-108) mmol/L Carbon Dioxide 25 (22-29) mmol/L Anion Gap 14 (12-20) BUN 23 H (9-16) mg/dL Creatinine 0.88 (0.5-1.4) mg/dL Estim Creat Clear Calc 33.8 Estimated GFR > 60 Random Glucose 101 (60-115) mg/dL Calcium 10.0 (8.4-10.2) mg/dL Magnesium 1.8 (1.6-2.6) mg/dL Total Bilirubin 0.5 (0.0-1.0) mg/dL AST 21 (5-31) U/L ALT 17 (0-31) U/L Alkaline Phosphatase 49 (39-117) U/L Troponin I High Sens 8.2 D (<3.5-17.0) ng/L Total Protein 6.4 L (6.5-8.0) g/dL Albumin 4.1 (3.5-5.0) g/dL Influenza Type A (PCR) (Negative) Influenza Type B (PCR) (Negative) RSV RNA Qual (PCR) (Negative) SARS-CoV-2 RNA (RT-PCR) (Negative) 09/01/22 Range/Units 15:36 WBC (4.8-10.8) X10*3/uL RBC (4.20-5.50) X10*6/uL Hgb (12.0-16.0) g/dl Hct (37.0-47.0) % MCV (80.0-98.0) fL MCH (27.0-33.0) pg MCHC (31.0-35.0) g/dl RDW (11.0-16.0) % Plt Count (160-400) X10*3/uL MPV (9.4-12.3) fL Immature Gran % (Auto) (0.0-0.4) % Neut % (Auto) (45-73) % Lymph % (Auto) (20-40) % [place] % (Auto) (2-11) % Eos % (Auto) (0-4) % Baso % (Auto) (0-2) % Lymph # (Auto) (1.2-4.9) X10*3/uL [place] # (Auto) (0.1-1.2) X10*3/uL Eos # (Auto) (0.0-0.4) X10*3/uL Baso # (Auto) (0.0-0.2) X10*3/uL Abs Immat Gran (auto) (0.00-0.03) X10*3/uL Absolute Neuts (auto) (2.0-8.3) x10*3/uL Absolute Nucleated RBC (0.0-0.012) X10*3/uL Nucleated RBC % (auto) (0.0-0.2) /100WBC Sodium (135-145) mmol/L Potassium (3.3-5.1) mmol/L Chloride (96-108) mmol/L Carbon Dioxide (22-29) mmol/L Anion Gap (12-20) BUN (9-16) mg/dL Creatinine (0.5-1.4) mg/dL Estim Creat Clear Calc Estimated GFR Random Glucose (60-115) mg/dL Calcium (8.4-10.2) mg/dL Magnesium (1.6-2.6) mg/dL Total Bilirubin (0.0-1.0) mg/dL AST (5-31) U/L ALT (0-31) U/L Alkaline Phosphatase (39-117) U/L Troponin I High Sens (<3.5-17.0) ng/L Total Protein (6.5-8.0) g/dL Albumin (3.5-5.0) g/dL Influenza Type A (PCR) NEGATIVE (Negative) Influenza Type B (PCR) NEGATIVE (Negative) RSV RNA Qual (PCR) NEGATIVE (Negative) SARS-CoV-2 RNA (RT-PCR) POSITIVE A (Negative) <PATRICK Rock - Last Filed: 09/01/22 15:04> Lab Results 09/01/22 09/01/22 09/01/22 Range/Units 15:35 15:35 15:35 WBC 4.7 L (4.8-10.8) X10*3/uL RBC 5.04 (4.20-5.50) X10*6/uL Hgb 13.2 (12.0-16.0) g/dl Hct 40.5 (37.0-47.0) % MCV 80.4 (80.0-98.0) fL MCH 26.2 L (27.0-33.0) pg MCHC 32.6 (31.0-35.0) g/dl RDW 15.6 (11.0-16.0) % Plt Count 249 (160-400) X10*3/uL MPV 9.8 (9.4-12.3) fL Immature Gran % (Auto) 0.2 (0.0-0.4) % Neut % (Auto) 56.6 (45-73) % Lymph % (Auto) 34.1 (20-40) % [place] % (Auto) 8.5 (2-11) % Eos % (Auto) 0.2 (0-4) % Baso % (Auto) 0.4 (0-2) % Lymph # (Auto) 1.6 (1.2-4.9) X10*3/uL [place] # (Auto) 0.4 (0.1-1.2) X10*3/uL Eos # (Auto) 0.0 (0.0-0.4) X10*3/uL Baso # (Auto) 0.0 (0.0-0.2) X10*3/uL Abs Immat Gran (auto) 0.01 (0.00-0.03) X10*3/uL Absolute Neuts (auto) 2.7 (2.0-8.3) x10*3/uL Absolute Nucleated RBC 0.000 (0.0-0.012) X10*3/uL Nucleated RBC % (auto) 0.0 (0.0-0.2) /100WBC Sodium 139 (135-145) mmol/L Potassium 4.1 (3.3-5.1) mmol/L Chloride 104 (96-108) mmol/L Carbon Dioxide 25 (22-29) mmol/L Anion Gap 14 (12-20) BUN 23 H (9-16) mg/dL Creatinine 0.88 (0.5-1.4) mg/dL Estim Creat Clear Calc 33.8 Estimated GFR > 60 Random Glucose 101 (60-115) mg/dL Calcium 10.0 (8.4-10.2) mg/dL Magnesium 1.8 (1.6-2.6) mg/dL Total Bilirubin 0.5 (0.0-1.0) mg/dL AST 21 (5-31) U/L ALT 17 (0-31) U/L Alkaline Phosphatase 49 (39-117) U/L Troponin I High Sens 8.2 D (<3.5-17.0) ng/L Total Protein 6.4 L (6.5-8.0) g/dL Albumin 4.1 (3.5-5.0) g/dL Influenza Type A (PCR) (Negative) Influenza Type B (PCR) (Negative) RSV RNA Qual (PCR) (Negative) SARS-CoV-2 RNA (RT-PCR) (Negative) 09/01/22 Range/Units 15:36 WBC (4.8-10.8) X10*3/uL RBC (4.20-5.50) X10*6/uL Hgb (12.0-16.0) g/dl Hct (37.0-47.0) % MCV (80.0-98.0) fL MCH (27.0-33.0) pg MCHC (31.0-35.0) g/dl RDW (11.0-16.0) % Plt Count (160-400) X10*3/uL MPV (9.4-12.3) fL Immature Gran % (Auto) (0.0-0.4) % Neut % (Auto) (45-73) % Lymph % (Auto) (20-40) % [place] % (Auto) (2-11) % Eos % (Auto) (0-4) % Baso % (Auto) (0-2) % Lymph # (Auto) (1.2-4.9) X10*3/uL [place] # (Auto) (0.1-1.2) X10*3/uL Eos # (Auto) (0.0-0.4) X10*3/uL Baso # (Auto) (0.0-0.2) X10*3/uL Abs Immat Gran (auto) (0.00-0.03) X10*3/uL Absolute Neuts (auto) (2.0-8.3) x10*3/uL Absolute Nucleated RBC (0.0-0.012) X10*3/uL Nucleated RBC % (auto) (0.0-0.2) /100WBC Sodium (135-145) mmol/L Potassium (3.3-5.1) mmol/L Chloride (96-108) mmol/L Carbon Dioxide (22-29) mmol/L Anion Gap (12-20) BUN (9-16) mg/dL Creatinine (0.5-1.4) mg/dL Estim Creat Clear Calc Estimated GFR Random Glucose (60-115) mg/dL Calcium (8.4-10.2) mg/dL Magnesium (1.6-2.6) mg/dL Total Bilirubin (0.0-1.0) mg/dL AST (5-31) U/L ALT (0-31) U/L Alkaline Phosphatase (39-117) U/L Troponin I High Sens (<3.5-17.0) ng/L Total Protein (6.5-8.0) g/dL Albumin (3.5-5.0) g/dL Influenza Type A (PCR) NEGATIVE (Negative) Influenza Type B (PCR) NEGATIVE (Negative) RSV RNA Qual (PCR) NEGATIVE (Negative) SARS-CoV-2 RNA (RT-PCR) POSITIVE A (Negative) <Jay Payton MD - Last Filed: 09/01/22 23:16> Discharge Plan Discharge Clinical Impression: Depression <PATRICK Rock - Last Filed: 09/01/22 15:04> Patient Disposition: Still a Patient <PATRICK Rock - Last Filed: 09/01/22 15:04> Prescriptions: No Action verapamil 180 mg tablet extended release 180 mg PO DAILY Qty: 90 8RF sertraline 100 mg tablet 150 mg PO DAILY Qty: 135 8RF trazodone 50 mg tablet 50 mg PO BEDTIME Qty: 90 8RF simvastatin 40 mg tablet 40 mg PO BEDTIME Qty: 90 8RF quinapril 40 mg tablet 40 mg PO DAILY Qty: 90 3RF hydrochlorothiazide 25 mg tablet 25 mg PO DAILY Qty: 90 8RF hydrocodone-acetaminophen 7.5-325 mg tablet 1 tab PO BID PRN (Reason: pain) 28 Days Qty: 56 0RF lorazepam 1 mg tablet 1 mg PO BID PRN (Reason: anxiety) Qty: 7 0RF <PATRICK Rock - Last Filed: 09/01/22 15:04>
--- NOTE | 2022-09-01 15:02 | ECG_ITS ---
Test Reason : SOB Blood Pressure : / mmHG Vent. Rate : 094 BPM Atrial Rate : 094 BPM P-R Int : 128 ms QRS Dur : 070 ms QT Int : 360 ms P-R-T Axes : 064 077 072 degrees QTc Int : 450 ms Normal sinus rhythm Normal ECG When compared with ECG of 18-AUG-2022 07:56, No significant change was found Referred By: Dinorah Iqbal Electronically Signed By:LEANNE BHAKTA
[2022-09-01 15:40] LABS: MANUAL DIFF FLAG NO
[2022-09-01 15:42] LABS: Basophils Percent Auto 0.4 % (0-2); Eosinophils Percent Auto 0.2 % (0-4); Hematocrit 40.5 % (37.0-47.0); Hemoglobin 13.2 g/dl (12.0-16.0); Imm Gran Abs Auto 0.01 X10*3/uL (0.00-0.03); Imm Gran Pct Auto 0.2 % (0.0-0.4); Lymphocytes Absolute Auto 1.6 X10*3/uL (1.2-4.9); Lymphocytes Percent Auto 34.1 % (20-40); Mean Corpuscular HGB Conc 32.6 g/dl (31.0-35.0); Mean Corpuscular Hemoglobin 26.2 pg (27.0-33.0); Mean Corpuscular Volume 80.4 fL (80.0-98.0); Mean Platelet Volume 9.8 fL (9.4-12.3); Monocytes Absolute Auto 0.4 X10*3/uL (0.1-1.2); Monocytes Percent Auto 8.5 % (2-11); Neutrophils Absolute Auto 2.7 x10*3/uL (2.0-8.3); Neutrophils Percent Auto 56.6 % (45-73); Platelet Count 249 X10*3/uL (160-400); Red Blood Count 5.04 X10*6/uL (4.20-5.50); Red Cell Distribution Width 15.6 % (11.0-16.0); White Blood Count 4.7 X10*3/uL (4.8-10.8)
[2022-09-01 15:58] LABS: Alanine Aminotransferase 17 U/L (0-31); Albumin Level 4.1 g/dL (3.5-5.0); Alkaline Phosphatase 49 U/L (39-117); Anion Gap 14 (12-20); Aspartate Amino Transferase 21 U/L (5-31); Bilirubin Total 0.5 mg/dL (0.0-1.0); Blood Urea Nitrogen 23 mg/dL (9-16); Carbon Dioxide 25 mmol/L (22-29); Chloride 104 mmol/L (96-108); Creatinine Clr Calc Pharmacy 33.8; Estimated Glomerular Filt Rate > 60; Glucose Random 101 mg/dL (60-115); Magnesium 1.8 mg/dL (1.6-2.6); Potassium 4.1 mmol/L (3.3-5.1); Sodium 139 mmol/L (135-145); Total Protein 6.4 g/dL (6.5-8.0)
[2022-09-01 16:05] LABS: Troponin-I High Sensitivity 8.2 ng/L (<3.5-17.0)
[2022-09-01 16:19] LABS: Influenza A PCR NEGATIVE (Negative); Influenza B PCR NEGATIVE (Negative); Resp Syncy Virus RNA Qual PCR NEGATIVE (Negative); SARS COV2 PCR INHOUSE POSITIVE (Negative)
[2022-09-01 18:00] VITALS: RESP 18
[2022-09-01 19:41] VITALS: BP 159/93; PULSE 94; RESP 16; TEMP 36.9; O2SAT 95
--- NOTE | 2022-09-01 19:42 | MHC.EDTECH ---
this pct assumed care of patient at 1900 ,pt vitals sign taken ,patient was assisted unto bedside commode ,patient coided large amount of urine .
[2022-09-01 21:46] VITALS: BP 146/70; PULSE 72; RESP 16; TEMP 36.3; O2SAT 97
[2022-09-01] MEDS: LORazepam 1 MG TABLET PO (22:14)
[2022-09-01 22:15] VITALS: BP 136/86; PULSE 105; RESP 20; TEMP 37; O2SAT 97
[2022-09-02] MEDS: Melatonin 3 MG TABLET PO (01:36)
--- NOTE | 2022-09-02 03:13 | PC.NURSE ---
This RN reading through chart, noting pt to be +SI. No sitter has been placed with pt since pt arrived. This RN discussing with primary RN Babita and MD Gruber. Per Allyn, no sitter required, just close obs. Pt room directly in front of nursing station @ this time. Per primary RN, [facility] but she was never assigned a bed. This RN contacting nursing supervisor coke handling who was unaware of the situation.
--- NOTE | 2022-09-02 03:20 | PC.NURSE ---
[facility] note reviewed by this RN, pt does no require SI precautions, plan for detox @ this time.
[2022-09-02 03:45] VITALS: BP 133/85; PULSE 89; RESP 18; TEMP 37; O2SAT 97
[2022-09-02] MEDS: guaiFEN/Codeine SF 200/20/10ML 10 ML LIQUID PO (04:05)
[2022-09-02 07:26] VITALS: BP 156/91; PULSE 96; RESP 16; TEMP 36.4; O2SAT 99
--- NOTE | 2022-09-02 07:46 | PC.NURSE ---
THIS RN ASSUMED CARE OF THIS PT AT 0700. PT IN BED RESTING QUIETLY, SHE DENIES PAIN. PT DENIES SI/HI. BREAKFAST GIVEN. INFECTION PRECAUTIONS REMAINS IN PLACE.
[2022-09-02 08:01] VITALS: BP 150/99; PULSE 111; RESP 20; O2SAT 98
--- NOTE | 2022-09-02 10:54 | PC.NURSE ---
PT TRANSFERRED TO HOSPITAL BED, SNACK GIVEN, DENIES PAIN, VSS.
--- NOTE | 2022-09-02 11:37 | MHC.RECOVSUP ---
? Reason for consult:Recovery Support o Current location:ED12? o Identified substance use concern: JUSTEN to Opiates - Support ? Additional information: Consultation with the care team prior to entry. I connected with patient and she is not interested in talking with a Scalping Machine Operator at this time and states that she does not have an issue with abuse of any kind. ?
[2022-09-02] MEDS: LORazepam 1 MG TABLET PO (12:51)
--- NOTE | 2022-09-02 13:02 | PHA.MEDREC ---
Pharmacy Consult ? Medication Reconciliation Pharmacy has completed the medication reconciliation. Spoke to patient's daughter Ronel ([phone]) and confirmed medications.
--- NOTE | 2022-09-02 13:30 | PC.NURSE ---
KAT MADRIGAL (PT'S DAUGHTER) ([phone] - [id number] FOR UPDATE ON PLAN OF CARE. ALEJANDRA MCELROY FROM [facility] AWARE. PT IN BED, NO APPARENT DISTRESS.
[2022-09-02 16:12] VITALS: BP 152/95; PULSE 102; RESP 18; TEMP 36.8; O2SAT 98
--- NOTE | 2022-09-02 16:38 | ED.GENADULT ---
HPI - General Adult General Chief complaint: General Medical Stated complaint: Sent by Dr. Florin Mahmood Time Seen by Provider: 09/01/22 17:39 Source: patient Mode of arrival: ambulatory Limitations: no limitations History of Present Illness Quality: burning Related Data Home Medications Medication Instructions Recorded Confirmed acetaminophen 325 mg tablet 650 mg PO Q6H PRN Pain 09/02/22 09/02/22 (Tylenol) docusate sodium 100 mg capsule 100 mg PO DAILY 09/02/22 09/02/22 Previous Rx's Medication Instructions Recorded verapamil 180 mg tablet,extended 180 mg PO DAILY #90 tabs 03/17/21 release sertraline 100 mg tablet 150 mg PO DAILY #135 tabs 03/27/22 trazodone 50 mg tablet 50 mg PO BEDTIME #90 tabs 03/27/22 quinapril 40 mg tablet 40 mg PO DAILY #90 tabs 05/18/22 simvastatin 40 mg tablet 40 mg PO BEDTIME #90 tabs 05/18/22 hydrochlorothiazide 25 mg tablet 25 mg PO DAILY #90 tabs 07/19/22 hydrocodone 7.5 mg-acetaminophen 1 tab PO BID PRN pain 28 days #56 08/04/22 325 mg tablet tabs lorazepam 1 mg tablet 1 mg PO BID PRN anxiety #7 tabs 08/18/22 Allergies Allergy/AdvReac Type Severity Reaction Status Date / Time No Known Allergies Allergy Verified 09/01/22 14:19 [facility] Past Medical History Medical History Annual physical exam Bilateral impacted cerumen Hyperlipidemia Hypertension Surgical History History of appendectomy History of breast surgery Family History Family History Father No problems noted. Mother No problems noted. Son Mental health disorder Social History Social History Housing: House Alcohol intake: unknown Patient Tobacco Use Status: Never used Tobacco Smoked in Last 30 Days: No e-Cigarette/Vaping Use: Never Used Second Hand Smoke Exposure: No Use of substances other than those prescribed or required for medical reasons: Unknown Advance Directives: No Advance Directives Information Provided: Yes Healthcare Proxy: Yes (dtr Ronel Marti) Guardian: No service: No Current occupational status: retired Current occupational exposures/hazards: No Cognitive needs: Yes (cane ) Hearing needs: No Vision needs: Yes Physical Exam ED Vital Signs: Vital Signs - 24 hr 09/01/22 18:00 09/01/22 19:41 09/01/22 21:46 Temperature 98.4 F 97.4 F Pulse Rate 94 72 Respiratory Rate 18 16 16 Blood Pressure 159/93 H 146/70 H Pulse Oximetry 95 97 Oxygen Delivery Method Room Air Room Air 09/01/22 22:15 09/02/22 03:45 09/02/22 07:26 Temperature 98.6 F 98.6 F 97.6 F Pulse Rate 105 H 89 96 Respiratory Rate 20 18 16 Blood Pressure 136/86 133/85 156/91 H Pulse Oximetry 97 97 99 Oxygen Delivery Method Room Air Room Air Room Air 09/02/22 08:01 09/02/22 16:12 Temperature 98.2 F Pulse Rate 111 H 102 H Respiratory Rate 20 18 Blood Pressure 150/99 H 152/95 H Pulse Oximetry 98 98 Oxygen Delivery Method Room Air Room Air BMI result Body Mass Index 18.6 Course Reevaluation(s) Reevaluation #1: Aug 4 30 pm Stable overnight we are waiting for psych dispo signed out to Dr Gruber Time: 16:39 Medications Administered Discontinued Medications Generic Name Dose Route Start Last Admin Trade Name Freq PRN Reason Stop Dose Admin Guaifenesin/Codeine Phosphate 10 ml 09/02/22 03:43 09/02/22 04:05 Guaifen/Codeine Sf 200/20/10ml 10 Ml Liquid PO 09/02/22 03:44 10 ml ONCE ONE Administration Lorazepam 1 mg 09/01/22 21:50 09/01/22 22:14 Lorazepam 1 Mg Tablet PO 09/01/22 21:51 1 mg ONCE ONE Administration Lorazepam 1 mg 09/02/22 12:43 09/02/22 12:51 Lorazepam 1 Mg Tablet PO 09/02/22 12:44 1 mg ONCE ONE Administration Melatonin 3 mg 09/02/22 01:32 09/02/22 01:36 Melatonin 3 Mg Tablet PO 09/02/22 01:33 3 mg ONCE ONE Administration Medical Decision Making Lab Data 09/01/22 15:35 09/01/22 15:35 Labs: Lab Results 09/01/22 09/01/22 09/01/22 Range/Units 15:35 15:35 15:35 WBC 4.7 L (4.8-10.8) X10*3/uL RBC 5.04 (4.20-5.50) X10*6/uL Hgb 13.2 (12.0-16.0) g/dl Hct 40.5 (37.0-47.0) % MCV 80.4 (80.0-98.0) fL MCH 26.2 L (27.0-33.0) pg MCHC 32.6 (31.0-35.0) g/dl RDW 15.6 (11.0-16.0) % Plt Count 249 (160-400) X10*3/uL MPV 9.8 (9.4-12.3) fL Immature Gran % (Auto) 0.2 (0.0-0.4) % Neut % (Auto) 56.6 (45-73) % Lymph % (Auto) 34.1 (20-40) % [place] % (Auto) 8.5 (2-11) % Eos % (Auto) 0.2 (0-4) % Baso % (Auto) 0.4 (0-2) % Lymph # (Auto) 1.6 (1.2-4.9) X10*3/uL [place] # (Auto) 0.4 (0.1-1.2) X10*3/uL Eos # (Auto) 0.0 (0.0-0.4) X10*3/uL Baso # (Auto) 0.0 (0.0-0.2) X10*3/uL Abs Immat Gran (auto) 0.01 (0.00-0.03) X10*3/uL Absolute Neuts (auto) 2.7 (2.0-8.3) x10*3/uL Absolute Nucleated RBC 0.000 (0.0-0.012) X10*3/uL Nucleated RBC % (auto) 0.0 (0.0-0.2) /100WBC Sodium 139 (135-145) mmol/L Potassium 4.1 (3.3-5.1) mmol/L Chloride 104 (96-108) mmol/L Carbon Dioxide 25 (22-29) mmol/L Anion Gap 14 (12-20) BUN 23 H (9-16) mg/dL Creatinine 0.88 (0.5-1.4) mg/dL Estim Creat Clear Calc 33.8 Estimated GFR > 60 Random Glucose 101 (60-115) mg/dL Calcium 10.0 (8.4-10.2) mg/dL Magnesium 1.8 (1.6-2.6) mg/dL Total Bilirubin 0.5 (0.0-1.0) mg/dL AST 21 (5-31) U/L ALT 17 (0-31) U/L Alkaline Phosphatase 49 (39-117) U/L Troponin I High Sens 8.2 D (<3.5-17.0) ng/L Total Protein 6.4 L (6.5-8.0) g/dL Albumin 4.1 (3.5-5.0) g/dL Influenza Type A (PCR) (Negative) Influenza Type B (PCR) (Negative) RSV RNA Qual (PCR) (Negative) SARS-CoV-2 RNA (RT-PCR) (Negative) 09/01/22 Range/Units 15:36 WBC (4.8-10.8) X10*3/uL RBC (4.20-5.50) X10*6/uL Hgb (12.0-16.0) g/dl Hct (37.0-47.0) % MCV (80.0-98.0) fL MCH (27.0-33.0) pg MCHC (31.0-35.0) g/dl RDW (11.0-16.0) % Plt Count (160-400) X10*3/uL MPV (9.4-12.3) fL Immature Gran % (Auto) (0.0-0.4) % Neut % (Auto) (45-73) % Lymph % (Auto) (20-40) % [place] % (Auto) (2-11) % Eos % (Auto) (0-4) % Baso % (Auto) (0-2) % Lymph # (Auto) (1.2-4.9) X10*3/uL [place] # (Auto) (0.1-1.2) X10*3/uL Eos # (Auto) (0.0-0.4) X10*3/uL Baso # (Auto) (0.0-0.2) X10*3/uL Abs Immat Gran (auto) (0.00-0.03) X10*3/uL Absolute Neuts (auto) (2.0-8.3) x10*3/uL Absolute Nucleated RBC (0.0-0.012) X10*3/uL Nucleated RBC % (auto) (0.0-0.2) /100WBC Sodium (135-145) mmol/L Potassium (3.3-5.1) mmol/L Chloride (96-108) mmol/L Carbon Dioxide (22-29) mmol/L Anion Gap (12-20) BUN (9-16) mg/dL Creatinine (0.5-1.4) mg/dL Estim Creat Clear Calc Estimated GFR Random Glucose (60-115) mg/dL Calcium (8.4-10.2) mg/dL Magnesium (1.6-2.6) mg/dL Total Bilirubin (0.0-1.0) mg/dL AST (5-31) U/L ALT (0-31) U/L Alkaline Phosphatase (39-117) U/L Troponin I High Sens (<3.5-17.0) ng/L Total Protein (6.5-8.0) g/dL Albumin (3.5-5.0) g/dL Influenza Type A (PCR) NEGATIVE (Negative) Influenza Type B (PCR) NEGATIVE (Negative) RSV RNA Qual (PCR) NEGATIVE (Negative) SARS-CoV-2 RNA (RT-PCR) POSITIVE A (Negative) Discharge Plan Discharge Clinical Impression: Depression Patient Disposition: Still a Patient Prescriptions: No Action verapamil 180 mg tablet extended release 180 mg PO DAILY Qty: 90 8RF sertraline 100 mg tablet 150 mg PO DAILY Qty: 135 8RF trazodone 50 mg tablet 50 mg PO BEDTIME Qty: 90 8RF simvastatin 40 mg tablet 40 mg PO BEDTIME Qty: 90 8RF quinapril 40 mg tablet 40 mg PO DAILY Qty: 90 3RF hydrochlorothiazide 25 mg tablet 25 mg PO DAILY Qty: 90 8RF hydrocodone-acetaminophen 7.5-325 mg tablet 1 tab PO BID PRN (Reason: pain) 28 Days Qty: 56 0RF lorazepam 1 mg tablet 1 mg PO BID PRN (Reason: anxiety) Qty: 7 0RF acetaminophen [Tylenol] 325 mg Tablet 650 mg PO Q6H PRN (Reason: Pain) docusate sodium 100 mg Capsule 100 mg PO DAILY
--- NOTE | 2022-09-02 18:12 | PC.NURSE ---
PT'S DAUGHTER CAME TO ED REQUESTING TO SPEAK WITH ALEJANDRA FROM [employer] AND GERARD, MATERIALS SUPERVISOR ABOUT PT'S DISCHARGE. PT'S DAUGHTER REQUESTED ANOTHER PYSCH EVAL HOWEVER DR. ROWLAND IS NOT ABLE TO SEE PT UNTIL TOMORROW MORNING SO HER DAUGHTER SAID SHE WANTS TO TAKE HER HOME. PT'S DAUGHTER BROUGHT HER B/P MEDS FROM HOME AND GAVE THEM TO HER, DR. SORTO AWARE. PT CLEARED FOR DISCHARGE. HER DAUGHTER GOT HER DRESSED AND WILL TRANSPORT HER HOME.
[2022-09-02 18:35] VITALS: BP 143/80; PULSE 113; RESP 18; O2SAT 99
== END 2022-09-02 18:36 | disposition home or self-care (01) ==
PROVIDERS: Physician Assistant Medical; Emergency Provider Emergency Medicine; PCP Internal Medicine
DX: U07.1 COVID-19 (principal); R45.851 Suicidal ideations; F32.A Depression, unspecified; F41.9 Anxiety disorder, unspecified; R06.02 Shortness of breath; F13.10 Sedative, hypnotic or anxiolytic abuse, uncomplicated; I10 Essential (primary) hypertension; E78.5 Hyperlipidemia, unspecified; Z79.02 Long term (current) use of antithrombotics/antiplatelets; Z79.899 Other long term (current) drug therapy
CPT/HCPCS: 0241U; 71046; 80053; 83735; 84484; 85025; 93005; 99284; 99285; S9485

== ENCOUNTER 2022-09-04 18:08 | Outpatient (REF) | payer MEDICARE, SELFPAY ==
[2022-09-04 18:18] LABS: Appearance Urine Clear; Color Urine Dark Yellow; Glucose Urine UA Negative (Negative); Leukocyte Esterase Urine Negative (Negative); Nitrite Urine Negative (Negative); PH 5.5 (5.0-9.0); Specific Gravity - Urine >= 1.030 (1.005-1.025); Urine Blood Negative (Negative); Urine Ketones Negative (Negative); Urine Protein Trace mg/dL (Neg-Trace)
== END 2022-09-04 18:09 | disposition home or self-care (01) ==
LOC: HO.LNP 18:08
PROVIDERS: Visit Provider Internal Medicine
DX: N39.0 Urinary tract infection, site not specified (principal)
CPT/HCPCS: 81003

== ENCOUNTER 2022-11-21 08:24 | Outpatient (REF) | payer MEDICARE, SELFPAY ==
[2022-11-21 10:22] LABS: MANUAL DIFF FLAG NO
[2022-11-21 10:32] LABS: Basophils Percent Auto 0.6 % (0-2); Eosinophils Absolute Auto 0.1 X10*3/uL (0.0-0.4); Eosinophils Percent Auto 1.1 % (0-4); Hematocrit 44.4 % (37.0-47.0); Hemoglobin 14.1 g/dl (12.0-16.0); Imm Gran Abs Auto 0.01 X10*3/uL (0.00-0.03); Imm Gran Pct Auto 0.2 % (0.0-0.4); Lymphocytes Absolute Auto 1.7 X10*3/uL (1.2-4.9); Lymphocytes Percent Auto 30.5 % (20-40); Mean Corpuscular HGB Conc 31.8 g/dl (31.0-35.0); Mean Corpuscular Hemoglobin 29.3 pg (27.0-33.0); Mean Corpuscular Volume 92.1 fL (80.0-98.0); Mean Platelet Volume 11.6 fL (9.4-12.3); Monocytes Absolute Auto 0.4 X10*3/uL (0.1-1.2); Monocytes Percent Auto 7.2 % (2-11); Neutrophils Absolute Auto 3.3 x10*3/uL (2.0-8.3); Neutrophils Percent Auto 60.4 % (45-73); Platelet Count 193 X10*3/uL (160-400); Red Blood Count 4.82 X10*6/uL (4.20-5.50); White Blood Count 5.4 X10*3/uL (4.8-10.8)
[2022-11-21 10:47] LABS: Alanine Aminotransferase 17 U/L (0-31); Alkaline Phosphatase 62 U/L (39-117); Anion Gap 11 (12-20); Aspartate Amino Transferase 19 U/L (5-31); Bilirubin Total 0.4 mg/dL (0.0-1.0); Blood Urea Nitrogen 14 mg/dL (9-16); Calcium 9.9 mg/dL (8.4-10.2); Carbon Dioxide 30 mmol/L (22-29); Chloride 106 mmol/L (96-108); Cholesterol 204 mg/dL; Estimated Glomerular Filt Rate > 60; Glucose Fasting 83 mg/dL (60-99); HDL Cholesterol 62 mg/dL; LDL Cholesterol Calculated 114 mg/dl; Sodium 143 mmol/L (135-145); Total Protein 6.4 g/dL (6.5-8.0); Triglycerides 143 mg/dL
[2022-11-21 11:04] LABS: Thyroid Stimulating Hormone 1.49 uIU/mL (0.32-4.0)
== END 2022-11-21 08:25 | disposition home or self-care (01) ==
LOC: HO.10HDL 08:24
PROVIDERS: Visit Provider Internal Medicine
DX: E03.9 Hypothyroidism, unspecified (principal); N28.9 Disorder of kidney and ureter, unspecified; D64.9 Anemia, unspecified; E78.5 Hyperlipidemia, unspecified
CPT/HCPCS: 36415; 80053; 80061; 84443; 85025

== ENCOUNTER 2023-08-10 11:21 | Outpatient (AMB) | payer MEDICARE, SELFPAY ==
--- NOTE | 2023-08-10 11:22 | MHC.PC.OV ---
Vital Signs 08/10/23 11:24 Height 5 ft 3 in Weight 110 lb BMI 19.5 BP 120/60 Blood Pressure Location Lt brachial Position Sitting Pulse 70 Pulse Source Pulse Oximeter Pulse Oximetry (%) 98 Oxygen Delivery Method Room Air Intake Visit Reasons: Dimentia Intake Note: Patient is here to follow up on Dementia. Beam Dyer Operator Required: No Environmental Engineering Assistant: Present Accompanied by: Daughter Allergies No Known Allergies Allergy (Verified 08/10/23 11:24) Medication List - Last Reconciled 08/10/23 by Florin Mahmood MD acetaminophen (Tylenol) 650 mg PO Q6H PRN lisinopril 20 mg PO DAILY quinapril 40 mg PO DAILY simvastatin 20 mg PO BEDTIME verapamil ER 180 mg PO DAILY Tobacco use date assessed: 08/10/23 Fall risk assessment: No Falls in past year Last assessed Fall Risk: 08/10/23 Dental Screening Dental Screen Date: 08/10/23 Did you have a dental visit in the last 12 months?: No Did you have a dental problem in the last 6 months where you did not have access to dental care?: No Was dental information given to patient?: No HPI Dimentia HPI Details HTN and dementia on rx; [facility] Medical History (Updated 08/10/23 @ 12:05 by Florin Mahmood MD) Bilateral impacted cerumen Hyperlipidemia Annual physical exam Hypertension Surgical History (Updated 08/10/23 @ 11:30 by MARICRUZ Angulo) History of skin surgery History of breast surgery History of appendectomy Family History Father No problems noted. Mother No problems noted. Son Mental health disorder Social History Housing: House Alcohol intake: unknown Patient Tobacco Use Status: Never used Tobacco e-Cigarette/Vaping Use: Never Used Second Hand Smoke Exposure: No service: No Current occupational status: retired Current occupational exposures/hazards: No Cognitive needs: Yes (cane ) Hearing needs: No Vision needs: Yes Questionnaire PHQ-9 Over the last 2 weeks, how often have you been bothered by any of the following problems? 1. Little interest or pleasure in doing things: not at all 2. Feeling down, depressed, or hopeless: not at all 3. Trouble falling or staying asleep, or sleeping too much: not at all 4. Feeling tired or having little energy: not at all 5. Poor appetite or overeating: not at all 6. Feeling bad about yourself - or that you are a failure or have let yourself or your family down: not at all 7. Trouble concentrating on things, such as reading the newspaper or watching television: not at all 8. Moving or speaking so slowly that other people could have noticed. Or the opposite - being so fidgety or restless that you have been moving around a lot more than usual: not at all 9. Thoughts that you would be better off or of hurting yourself in some way: not at all Total score: 0 Depression Screening Interpretation: Negative Depression Screening Done: Yes 97093 - PHQ-9 Billing: Yes Source: Developed by Drs. Nixon Deleon, Saranya Pearson, Toni Damian and colleagues, with an educational sanya from [employer]. Thrive Questionnaire Date Thrive assessed: 08/10/23 I am a: Patient What is your living situation today?: I have a steady place to live Within the past 12 months, did the food you bought not last and you didn't have the money to get more?: Never true Within the past 12 months, did you worry whether your food would run out before you got money to buy more?: Never true Do you have trouble paying for medicines?: No Do you have trouble getting transportation to medical appointments?: No Do you have trouble paying your heating and electricity bill?: No Do you have trouble taking care of your child, family member or friend?: No Do you have trouble with day-to-day activities such as bathing, preparing meals, shopping, managing finances, etc.?: No Are you currently unemployed and looking for a job?: No Are you interested in more education?: No Currently or been in a relationship where the following occur: no concerns reported AUDIT C Alcohol Use Questionnaire (AUDIT-C) 1. How often do you have a drink containing alcohol?: Never Total Score: 0 HOSESIN-7 AMB Questionnaire HOSSEIN-7 Date HOSSEIN - 7 assessed: 08/10/23 Feeling nervous, anxious, or on edge: 0 = Not at all Not being able to stop or control worryin = Not at all Worrying too much about different things: 0 = Not at all Trouble relaxin = Not at all Being so restless that it is hard to sit still: 0 = Not at all Becoming easily annoyed or irritable: 0 = Not at all Feeling afraid as if something awful might happen: 0 = Not at all Total HOSSEIN-7 score (0-4 normal; 5-9 mild; 10-14 moderate; 15-21 severe): 0 Source: Developed by Drs. Nixon Deleon, Saranya Pearson, Toni Damian and colleagues, with an educational sanya from [employer]. HOSSEIN-7 Assessment Billing HOSSEIN-7 Assessment Tool: HOSSEIN-7 Assessment 11156 Review of Systems Const Denies chills, Denies headache(s) and Denies weight loss ENT Denies headache(s) Card Denies chest pain, Denies syncope, Denies irregular heart rhythm and Denies dyspnea Resp Denies chest congestion, Denies cough and Denies dyspnea GI Denies abdominal pain, Denies change in stool character, Denies nausea and Denies vomiting Musc Denies deformity and Denies joint swelling Neuro Denies syncope and Denies headache(s) Physical exam (Primary Care) Vital Signs: Last Vital Signs Pulse 70 08/10/23 11:24 BP 120/60 08/10/23 11:24 Pulse Ox 98 08/10/23 11:24 Oxygen Delivery Method Room Air 08/10/23 11:24 BMI result Body Mass Index 19.5 Tobacco/Smoking Status: Tobacco use Status Tobacco use date assessed 08/10/23 08/10/23 11:31 Patient Tobacco Use Status Never used Tobacco 08/10/23 11:31 e-Cigarette/Vaping Use Never Used 08/10/23 11:31 PHQ-9: PHQ-9 Score PHQ-9: Total score 0 08/10/23 11:31 Depression Screening Interpretation: Negative Thrive Assessment: Date of Thrive Assessment Date Thrive assessed 08/10/23 08/10/23 11:31 Currently or been in a relationship where the following occur: no concerns reported Const General: cooperative, comfortable, no acute distress and alert Neck Neck: Yes no lymphadenopathy Thyroid: Thyroid normal Resp Effort & Inspection: normal respiratory effort Auscultation: clear to auscultation bilaterally Percussion: percussion normal Cardio Jugular venous distension: no JVD Palpation: normal PMI Rate: regular rate Rhythm: regular rhythm Heart sounds: S1 normal heart sound present and S2 normal heart sound present GI Inspection: Yes normal to inspection Palpation (GI): No hepatosplenomegaly present Skin General skin exam: no rashes or lesions noted Extrem General: Yes no clubbing, cyanosis or edema Assessment and Plan Assessment & Plan (1) Hypertension: Code(s): I10 - Essential (primary) hypertension Plan: stable; same rx (2) Dementia: Code(s): F03.90 - Unspecified dementia, unspecified severity, without behavioral disturbance, psychotic disturbance, mood disturbance, and anxiety Plan: stable Orders: Orders Thyroid Stimulating Hormone Today E03.9 - Hypothyroidism, unspecified Comprehensive [place]. Panel Fast Today N28.9 - Disorder of kidney and ureter, unspecified Ferritin Today D64.9 - Anemia, unspecified Lipid Panel Today E78.5 - Hyperlipidemia, unspecified Medications: Changed From simvastatin 40 mg PO BEDTIME 90 tabs 8RF To simvastatin 20 mg PO BEDTIME Refilled verapamil ER 180 mg PO DAILY 90 tabs 8RF Coding Level of Care Code Est Pt Level 3 (83070) Diagnoses Hypertension I10 Dementia F03.90 Additional Codes HOSSEIN-7 Assessment Billing - HOSSEIN-7 Assessment Tool: HOSSEIN-7 Assessment [id number] ([id number])
[2023-08-10 11:24] VITALS: BP 120/60; PULSE 70; O2SAT 98; BMI 19.5
== END 2023-08-10 12:43 | disposition home or self-care (01) ==
PROVIDERS: PCP Internal Medicine; Visit Provider Internal Medicine
DX: I10 Essential (primary) hypertension (principal); F03.90 Unspecified dementia, unspecified severity, without behavioral disturbance, psychotic disturbance, mood disturbance, and anxiety
CPT/HCPCS: 99213

== ENCOUNTER 2023-08-10 11:53 | Outpatient (REF) | payer MEDICARE, SELFPAY | END 2023-08-10 11:54 | disposition home or self-care (01) | LOC: HO.LAB 11:53 | PROVIDERS: PCP Internal Medicine; Visit Provider Internal Medicine | DX: E03.9 Hypothyroidism, unspecified (principal); N28.9 Disorder of kidney and ureter, unspecified; E78.5 Hyperlipidemia, unspecified; D64.9 Anemia, unspecified | CPT/HCPCS: 36415; 80053; 80061; 82728; 84443 ==

== ENCOUNTER 2025-01-08 10:10 | Outpatient (AMB) | payer MEDICARE, SELFPAY ==
--- NOTE | 2025-01-08 10:15 | MHC.PC.OV ---
Vital Signs 01/08/25 10:18 Height 5 ft 3 in Weight 107 lb 2.314 oz BMI 19.0 BP 154/96 H Blood Pressure Location Lt brachial Position Sitting Intake Visit Reasons: noel Dr Mahmood Manager Of Training Required: No Accompanied by: Daughter Allergies No Known Allergies Allergy (Verified 01/08/25 10:26) Medication List - Last Reconciled 01/08/25 by Deb Jaffe MD acetaminophen (Tylenol) 650 mg PO Q6H PRN lisinopril 20 mg PO DAILY quinapril 40 mg PO DAILY simvastatin 20 mg PO BEDTIME verapamil ER 180 mg PO DAILY Tobacco use date assessed: 01/08/25 Fall risk assessment: No Falls in past year Last assessed Fall Risk: 01/08/25 Dental Screening Dental Screen Date: 01/08/25 Did you have a dental visit in the last 12 months?: No Did you have a dental problem in the last 6 months where you did not have access to dental care?: No Was dental information given to patient?: No HPI HPI Comments History of Present Illness Details The patient is an 89-year-old female presenting for a follow-up regarding essential hypertension management and overall health assessment. Her blood pressure tends to elevate when measured in a clinical setting but remains stable when monitored at home. Her current antihypertensive regimen includes lisinopril 20 mg and verapamil 180 mg. Previously on quinapril, this was discontinued in 2022. Dr. Hernandez also ceased simvastatin during the last visit due to satisfactory lipid levels. The patient has a notable history of cognitive impairment, seen through challenges in recalling the current year and address accurately. However, she denies other significant symptoms such as chest pain or shortness of breath, and reports a largely stable emotional state with mild depression. Surgically, her history includes skin surgery, a left breast operation, and an appendectomy following rupture. She remains active and mobile without reliance on assistive devices. In dermatological aspects, she reports a stable skin lesion consistent with actinic keratosis, with no recent changes in size or symptomatology. [facility] Medical History (Updated 01/08/25 @ 11:22 by Deb Jaffe MD) Bilateral impacted cerumen Hyperlipidemia Annual physical exam Hypertension Surgical History History of skin surgery History of breast surgery History of appendectomy Family History Father No problems noted. Mother No problems noted. Son Mental health disorder Social History Housing: House Alcohol intake: unknown Patient Tobacco Use Status: Never used Tobacco e-Cigarette/Vaping Use: Never Used Second Hand Smoke Exposure: No service: No Current occupational status: retired Current occupational exposures/hazards: No Cognitive needs: Yes (cane ) Hearing needs: No Vision needs: Yes Questionnaire PHQ-9 Over the last 2 weeks, how often have you been bothered by any of the following problems? 1. Little interest or pleasure in doing things: nearly every day 2. Feeling down, depressed, or hopeless: nearly every day 3. Trouble falling or staying asleep, or sleeping too much: several days 4. Feeling tired or having little energy: several days 5. Poor appetite or overeating: not at all 6. Feeling bad about yourself - or that you are a failure or have let yourself or your family down: not at all 7. Trouble concentrating on things, such as reading the newspaper or watching television: nearly every day 8. Moving or speaking so slowly that other people could have noticed. Or the opposite - being so fidgety or restless that you have been moving around a lot more than usual: not at all 9. Thoughts that you would be better off or of hurting yourself in some way: several days Total score: 12 Depression Screening Interpretation: Positive Depression Screening Follow-up: Existing condition and Follow-up Visit Requested Depression Screening Done: Yes 88377 - PHQ-9 Billing: Yes Source: Developed by Drs. Nixon Deleon, Saranya Pearson, Toni Damian and colleagues, with an educational sanya from [employer]. Thrive Questionnaire Date Thrive assessed: 01/08/25 I am a: Parent/Caregiver What is your living situation today?: I have a steady place to live Within the past 12 months, did the food you bought not last and you didn't have the money to get more?: Never true Within the past 12 months, did you worry whether your food would run out before you got money to buy more?: Never true Do you have trouble paying for medicines?: No Do you have trouble getting transportation to medical appointments?: No Do you have trouble paying your heating and electricity bill?: No Do you have trouble taking care of your child, family member or friend?: I choose not to answer this question Do you have trouble with day-to-day activities such as bathing, preparing meals, shopping, managing finances, etc.?: I choose not to answer this question Are you currently unemployed and looking for a job?: I choose not to answer this question Are you interested in more education?: No Please select the resources that you would like help with: Care for elder or disabled Currently or been in a relationship where the following occur: No concerns reported THRIVE Score: 0 AUDIT C Alcohol Use Questionnaire (AUDIT-C) 1. How often do you have a drink containing alcohol?: Never Total Score: 0 HOSSEIN-7 AMB Questionnaire HOSSEIN-7 Date HOSSEIN - 7 assessed: 01/08/25 Feeling nervous, anxious, or on edge: 0 = Not at all Not being able to stop or control worryin = Several days Worrying too much about different things: 1 = Several days Trouble relaxin = Several days Being so restless that it is hard to sit still: 0 = Not at all Becoming easily annoyed or irritable: 0 = Not at all Feeling afraid as if something awful might happen: 0 = Not at all Total HOSSEIN-7 score (0-4 normal; 5-9 mild; 10-14 moderate; 15-21 severe): 3 Source: Developed by Drs. Nixon Deleon, Saranya Pearson, Toni Damian and colleagues, with an educational sanya from [employer]. HOSSEIN-7 Assessment Billing HOSSEIN-7 Assessment Tool: HOSSEIN-7 Assessment 59577 Review of Systems Const All systems reviewed & are unremarkable except as noted in HPI and below Card Denies chest pain at rest, Denies chest pain with activity, Denies edema, Denies irregular heart rhythm, Denies claudication, Denies dyspnea, Denies dyspnea on exertion, Denies orthopnea, Denies paroxysmal nocturnal dyspnea and Denies slow heart rate Resp Denies cough, Denies dyspnea and Denies dyspnea on exertion Physical exam (Primary Care) Vital Signs: Last Vital Signs BP 154/96 H 01/08/25 10:18 BMI result Body Mass Index 19.0 Tobacco/Smoking Status: Tobacco use Status Tobacco use date assessed 01/08/25 01/08/25 10:27 Patient Tobacco Use Status Never used Tobacco 01/08/25 10:18 e-Cigarette/Vaping Use Never Used 01/08/25 10:18 PHQ-9: PHQ-9 Score PHQ-9: Total score 12 01/08/25 10:43 Depression Screening Interpretation: Positive Depression Screening Follow-up: Existing condition and Follow-up Visit Requested Thrive Assessment: Date of Thrive Assessment Date Thrive assessed 01/08/25 01/08/25 10:18 Currently or been in a relationship where the following occur: No concerns reported Const Limitations: ambulation with cane Resp Effort & Inspection: normal respiratory effort Auscultation: clear to auscultation bilaterally Cardio Jugular venous distension: no JVD Rate: regular rate Rhythm: regular rhythm Heart sounds: S1 normal heart sound present and S2 normal heart sound present Extrem General: Yes full ROM Coding Level of Care Code Est Pt Level 4 (69118) Complex EM visit Add On G2211 Diagnoses Hypertension I10 Dementia F03.90 Mild major depression F32.0 Hyperlipidemia E78.5 Actinic keratoses L57.0 Additional Codes HOSSEIN-7 Assessment Billing - HOSSEIN-7 Assessment Tool: HOSSEIN-7 Assessment 52395 ([id number]) PHQ-9 - 17688 - PHQ-9 Billing: Yes ([id number]) Time Spent (min) 20 Assessment & Plan Assessment & Plan (1) Hypertension: Code(s): I10 - Essential (primary) hypertension Category: Medical (2) Dementia: Code(s): F03.90 - Unspecified dementia, unspecified severity, without behavioral disturbance, psychotic disturbance, mood disturbance, and anxiety Category: Medical (3) Mild major depression: Code(s): F32.0 - Major depressive disorder, single episode, mild Category: Medical (4) Hyperlipidemia: Comment: 20 min reviewing chart eval pt and documenting; conts sam3e rx; do labs Code(s): E78.5 - Hyperlipidemia, unspecified Category: Medical (5) Actinic keratoses: Code(s): L57.0 - Actinic keratosis Category: Medical Plan The current plan involves continuing antihypertensive therapy with lisinopril and verapamil, modifying the dose if hypotension occurs. Cognitive function and mood will be monitored, without immediate need for intervention. Her actinic keratosis will be observed, with treatment deferred unless changes are noted. No laboratory work is required unless her health status changes. Patient was informed and verbally consented to the use of an ambient scribe for clinic note documentation during this visit. During our discussion, I informed the patient and her family of the continued management of essential hypertension with her current medication regimen, ensuring compliance and monitoring at home. We discussed delaying blood work until symptomatic concerns arise, given previous normal readings. We reviewed cognitive status, deciding on observation as she generally feels well and will have regular assessments. For actinic keratosis, we agreed to monitor the lesion without immediate intervention. We emphasized the importance of consistent home monitoring of blood pressure, advising when to re-evaluate if complications arise. Medications: Discontinued quinapril Discontinued Reason: Patient Completed Course 40 mg PO DAILY 90 tabs 3RF Patient Instructions: - Continue taking lisinopril and verapamil as prescribed, half tablets if blood pressure is low. - Monitor blood pressure regularly at home, and report any readings persistently above normal. - Return for reassessment if experiencing significant memory issues, abnormal mood changes, or if the skin lesion alters in appearance. - No immediate need for laboratory tests unless health concerns arise. - Maintain regular follow-up appointments for continued monitoring of health status.
[2025-01-08 10:18] VITALS: BP 154/96; BMI 19.0
--- OUTSIDE RECORDS SUMMARY | 2025-01-08 11:51 | XMS_ITS ---
Author Organization [facility] on Care Team Providers Care Orthopedic Physician Assistant Name Role Phone Janice Yates Unavailable Unavailable Danielle Lopez Unavailable Unavailable Kelsea Guzman Unavailable Unavailable Amanda Stratton Unavailable Unavailable Danii Catherine Unavailable Unavailable Veronika Torres Unavailable Unavailable Allergies and adverse reactions No Known Allergies Care Team Name Role Address Phone Organization Dates Kelsea Guzman PCP [address] [place] [address], [id number], [facility] (Office): : [facility] 08/18/2022 - 08/26/2022 Janice Yates [address] [place], [place], [facility], [place] (Office): [phone] [facility] 08/18/2022 - 08/26/2022 Danielle Lopez [address] [place], [address], [place] (Office): [facility] 08/18/2022 - 08/26/2022 Amanda Stratton [address] [place] [address], [phone], [place] (Office): [facility] 08/18/2022 - 08/26/2022 Danii Catherine [address] [place] [address], [phone], [place] (Office): [facility] 08/18/2022 - 08/26/2022 Veronika Rankines [address] [place] [address], [id number], [place] (Office): : [facility] 08/18/2022 - 08/26/2022 Immunizations Immunization Status Vaccine Details Vaccine Code CodeSystem Gael e Notes SARS-COV-2 (COVID-19) completed SARS-COV-2 (COVID-19) vaccine, vector non-replicating, recombinant spike protein-Ad26, preservative free, 0.5 mL Mfg: [employer] Step 1 of Multi-step 212 CVX created date: 08/18/2022 administered date: 11/12/2020 SARS-COV-2 (COVID-19 BOOSTER) completed SARS-COV-2 (COVID-19) vaccine, mRNA, spike protein, LNP, preservative free, 50 mcg/0.5 mL dose Mfg: Moderna 221 CVX created date: 08/18/2022 administered date: 06/08/2021 Mental Status Section Date Assessment Total Score Description 08/26/2022 BIMS 13 cognitively int act CAM 0 No delirium ind icated PHQ-9 02 minimal depress ion 08/24/2022 BIMS 13 cognitively int act CAM 0 No delirium ind icated PHQ-9 02 minimal depress ion Problems Problem # Description Date of onset Resolved Date Code CodeSystem Concern Status 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 08/18/[address] active 2 ANXIETY DISORDER, UNSPECIFIED 08/18/[address] active 3 ELEVATION OF LEVELS OF LACTIC ACID DEHYDROGENASE [LDH] 08/18/[address] active 4 HYPERLIPIDEMIA, UNSPECIFIED 08/18/[address] active 5 MILD COGNITIVE IMPAIRMENT OF UNCERTAIN OR UNKNOWN ETIOLOGY 08/18/[address] active 6 MUSCLE WEAKNESS (GENERALIZED) 08/18/[address] active 7 OPIOID DEPENDENCE, UNCOMPLICATED 08/18/[address] active 8 OTHER CHRONIC PAIN 08/18/[address] active 9 PAIN IN RIGHT SHOULDER 08/18/[address] active Reason for Referral No Reasons for Referral Entered Social History Social History Observation Description Start Date End Date Code Code System Current Smoking Status Tobacco smoking consumption unknown 636230164 SNOMED CT Sex Assigned At Female 1935 04769-4 [facility] Gender Identity Vital Signs Code Code System Vitals Name Values and Units Timing Information 10990-4 [facility] Pain Level Value=0.0 08/26/2022 9279-1 [facility] Respiratory Rate Value=17.0 Units=/m in 08/25/2022 8462-4 [facility] Blood Pressure-Diastolic Value=67 Un its=mmHg 08/25/2022 8480-6 [facility] Blood Pressure-Systolic Qbnkv=814 Un its=mmHg 08/25/2022 8310-5 [facility] Body Temperature Value=97.8 Units=?? F 08/25/2022 8867-4 [facility] Heart rate Value=89.0 Units=/min 10135-5 [facility] O2 % BldC Oximetry Value=96.0 Units= % 08/25/2022 8302-2 [facility] Height Value=62.0 Units=Inches 08/24/2022 73375-1 [facility] Weight Uznki=220.0 Units=Lbs
== END 2025-01-08 10:51 | disposition home or self-care (01) ==
LOC: HO.HMCH 10:11
PROVIDERS: PCP Internal Medicine; Visit Provider Internal Medicine
DX: I10 Essential (primary) hypertension (principal); F03.90 Unspecified dementia, unspecified severity, without behavioral disturbance, psychotic disturbance, mood disturbance, and anxiety; F32.0 Major depressive disorder, single episode, mild; E78.5 Hyperlipidemia, unspecified; L57.0 Actinic keratosis